=== PATIENT | male | born 1995 | race African-American/Black ===

== ENCOUNTER 2020-04-09 11:13 | Emergency (ER) | payer BC, MEDICAID ==
--- NOTE | 2020-04-09 11:29 | EDM.PDOC ---
ED HPI GENERAL MEDICAL PROBLEM - General Stated Complaint: LEFT MIDDLE FINGER INJURY Time Seen by Provider: 04/09/20 11:29 Source of Information: Reports: Patient, RN, RN Notes Reviewed History Limitations: Reports: No Limitations - History of Present Illness INITIAL COMMENTS - FREE TEXT/NARRATIVE: Patient presents to the ER with c/o pain to the left middle finger. States he slammed the finger in a door about 1 1/2 weeks ago. States he can bend somewhat, and there is pain when he puts pressure on it. 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 Onset: Sudden Left Middle Finger-Middle Pain Score (Numeric/FACES): 1 Review of Systems - Review of Systems Review Of Systems: Comprehensive ROS is negative, except as noted in HPI. ED EXAM, GENERAL - Physical Exam Exam: See Below Exam Limited By: No Limitations General Appearance: Alert, WD/WN, No Apparent Distress Eye Exam: Bilateral Eye: EOMI, Normal Inspection Ears: Normal External Exam, Hearing Grossly Normal Nose: Normal Inspection Throat/Mouth: Normal Inspection, Normal Voice, No Airway Compromise Head: Atraumatic, Normocephalic Neck: Normal Inspection, Supple, Non-Tender, Full Range of Motion Respiratory/Chest: No Respiratory Distress, Lungs Clear, Normal Breath Sounds, No Accessory Muscle Use, Chest Non-Tender Cardiovascular: Normal Peripheral Pulses, Regular Rate, Rhythm, No Edema, No Gallop, No JVD, No Murmur, No Rub Peripheral Pulses: 2+: Radial (L), Radial (R) GI/Abdominal: Normal Bowel Sounds, Soft, Non-Tender (Male) Exam: Deferred Rectal (Males) Exam: Deferred Back Exam: Normal Inspection, Full Range of Motion, NT Extremities: Limited Range of Motion (left middle finger), Other (mild pain to the left middle finger) Neurological: Alert, Oriented Psychiatric: Normal Affect, Normal Mood Skin Exam: Warm, Dry, Intact, Normal Color, No Rash Lymphatic: No Adenopathy Course - Vital Signs Last Recorded V/S: Last Vital Signs Temp 98.4 F 04/09/20 11:33 Pulse 102 H 04/09/20 11:33 Resp 16 04/09/20 11:33 BP 137/94 H 04/09/20 11:33 Pulse Ox 96 04/09/20 11:33 - Radiology Interpretation Free Text/Narrative:: Left middle finger xray: No acute findings See rad report - Re-Assessments/Exams Free Text/Narrative Re-Assessment/Exam: 04/09/20 12:08 Pre tenzin finger splint applied to the left middle finger Departure - Departure Time of Disposition: 12:08 Disposition: Home, Self-Care 01 Condition: Good Clinical Impression: Sprain of left middle finger Qualifiers: Encounter type: initial encounter Sprain of finger site: interphalangeal joint Qualified Code(s): S63.633A - Sprain of interphalangeal joint of left middle finger, initial encounter - Discharge Information *PRESCRIPTION DRUG MONITORING PROGRAM REVIEWED*: No *COPY OF PRESCRIPTION DRUG MONITORING REPORT IN PATIENT YELENA: No Instructions: Cast or Splint Care, Adult, [id number], Finger Sprain, Adult, [id number] Referrals: PCP,None [Primary Care Provider] - Forms: ED Department Discharge Additional Instructions: Wear finger splint for the next 1-2 weeks. May remove when showering If no improvement in 1-2 weeks, follow up with your primary care provider in the clinic May use Tylenol and/or Ibuprofen as directed for pain Sepsis Event Note (ED) - Focused Exam Vital Signs: Vital Signs Temp Pulse Resp BP Pulse Ox 04/09/20 11:33 98.4 F 102 H 16 137/94 H 96
--- NOTE | 2020-04-09 12:05 | CR ---
[id number] RAD/RAD Hand Left 3V EXAM: 3 VIEWS LEFT HAND. INDICATION: SLAMMED IN A DOOR. PAIN IN MIDDLE FINGER. COMPARISON: None. DISCUSSION: No fracture, dislocation or other acute osseous abnormality. IMPRESSION: 1. No acute osseous abnormalities. Jae Subramanian DO 04/09/20 [id number] Thank you for allowing us to participate in the care of your patient.
== END 2020-04-09 12:15 | disposition home or self-care (01) ==
LOC: VM.ED 11:13
DX: S63.633A Sprain of interphalangeal joint of left middle finger, initial encounter (principal); W23.0XXA Caught, crushed, jammed, or pinched between moving objects, initial encounter
CPT/HCPCS: 73130-LT; 99283

== ENCOUNTER 2022-08-11 13:01 | Emergency (ER) | payer BC | END 2022-08-11 14:50 | disposition home or self-care (01) | LOC: VM.ED 13:01 | DX: Z48.00 Encounter for change or removal of nonsurgical wound dressing (principal); S80.812D Abrasion, left lower leg, subsequent encounter | CPT/HCPCS: 36415; 85025; 85379; 99283 ==